=== PATIENT | female | born 1990 | race American Indian/Alaskan Native ===

== ENCOUNTER 2019-06-27 19:23 | Outpatient (CLI) | payer MEDICAID ==
[2019-06-27 20:02] VITALS: BP 119/85
[2019-06-27] MEDS ORDERED: BETAMET ACET/BETAMET NA PH 6 MG/ML INJ 5 ML MDV IM ONE (20:11)
[2019-06-27] MEDS ORDERED: BETAMET ACET/BETAMET NA PH 6 MG/ML INJ 5 ML MDV IM SCH (20:35)
== END 2019-06-27 21:03 | disposition home or self-care (01) ==
LOC: TRG 19:23 → LD 19:59 → TRG 21:03
PROVIDERS: ATTEND Obstetrics & Gynecology
DX: O47.03 False labor before 37 completed weeks of gestation, third trimester (principal); Z3A.36 36 weeks gestation of pregnancy
CPT/HCPCS: 96372; J0702

== ENCOUNTER 2019-06-28 19:46 | Outpatient (CLI) | payer MEDICAID ==
[2019-06-28] MEDS ORDERED: BETAMET ACET/BETAMET NA PH 6 MG/ML INJ 5 ML MDV IM ONE (20:05)
[2019-06-28 20:10] VITALS: BP 111/73
== END 2019-06-28 20:45 | disposition home or self-care (01) ==
LOC: TRG 19:46
PROVIDERS: ATTEND Obstetrics & Gynecology
DX: O47.03 False labor before 37 completed weeks of gestation, third trimester (principal); Z3A.36 36 weeks gestation of pregnancy
CPT/HCPCS: 59025; 96372; J0702